=== PATIENT | male | born 1975 | race Two or more races ===

== ENCOUNTER 2020-09-15 04:39 | Emergency (ER) | payer BC ==
[~2020-09-15] VITALS: Ht 177.8 cm; Wt 77.3 kg
[2020-09-15 04:42] VITALS: BP 123/93; Ht 177.8 cm; Wt 77.3 kg
[2020-09-15 05:21] LABS: BASOPHILS 0.3 % (0-2); EOSINOPHILS 0.3 % (0-7); HEMATOCRIT 44.9 % (42.0-54.0); HEMOGLOBIN 15.1 g/dL (13.5-17.5); IMMATURE GRANULOCYTES 0.1 % (0-5); LYMPHOCYTE ABS# 2.17 10x3/uL (1.32-3.57); MCH 28.1 pg (26.0-34.0); MCHC 33.6 g/dL (31.0-37.0); MCV 83.6 fL (80.0-100.0); MEAN PLATELET VOLUME 10.9 fL (7.4-10.4); MONOCYTES 15.4 % (2-11); NEUTROPHILS 52.9 % (40-80); PLATELET COUNT 226 10x3/uL (130-400); RBC 5.37 10x6/uL (4.20-6.10); RDW 13.4 % (11.5-14.5)
[2020-09-15 05:31] LABS: CALC OSMOLALITY 271 mosm/kg (275-300); CALCIUM 9.3 mg/dL (8.5-10.1); CARBON DIOXIDE 28.6 mmol/L (21.0-32.0); CHLORIDE - SERUM 97 mmol/L (98-107); CREATININE - SERUM 1.3 mg/dL (0.6-1.3); GLUCOSE 111 mg/dL (74-106); POTASSIUM - SERUM 3.6 mmol/L (3.5-5.1); SODIUM 135 mmol/L (136-145); UREA NITROGEN 15 mg/dL (7-18); eGFR NON AFRICAN AMERICAN 64 mL/min (90-120)
[2020-09-15 05:45] LABS: ALBUMIN 4.2 g/dL (3.4-5.0); ALKALINE PHOSPHATASE 74 U/L (30-120); ALT (SGPT) 20 U/L (10-68); BILIRUBIN - TOTAL 0.45 mg/dL (0.2-1.3); C-REACTIVE PROTEIN 1.1 mg/dL (0.0-0.9)
[2020-09-15 05:46] LABS: PRO BNP 9 pg/mL (0-125); TROPONIN-I < 0.017 ng/mL (0.000-0.060)
[2020-09-15 06:40] LABS: UDS - AMPHET POSITIVE QUAL (NEGATIVE); UDS - BARB NEGATIVE QUAL (NEGATIVE); UDS - BENZO NEGATIVE QUAL (NEGATIVE); UDS - COCAINE NEGATIVE QUAL (NEGATIVE); UDS - OPIATE NEGATIVE QUAL (NEGATIVE); UDS - PCP NEGATIVE QUAL (NEGATIVE); UDS - THC NEGATIVE QUAL (NEGATIVE)
[2020-09-15 06:53] LABS: BILIRUBIN NEGATIVE (NEGATIVE); KETONE NEGATIVE (NEGATIVE); NITRITE NEGATIVE (NEGATIVE); UROBILINOGEN NORMAL mg/dL (< 2)
[2020-09-15 06:54] LABS: BACTERIA FEW HPF (NONE SEEN); SQUAMOUS EPITHELIAL 0-5 HPF (0-4); WHITE CELLS - URINE 2 HPF (0-1)
== END 2020-09-15 06:36 | disposition home or self-care (01) ==
LOC: D.ER 04:39
PROVIDERS: Family Medicine
DX: R06.00 Dyspnea, unspecified (principal)

== ENCOUNTER 2020-09-16 00:39 | Emergency (ER) | payer BC ==
[~2020-09-16] VITALS: Ht 177.8 cm; Wt 68.2 kg
[2020-09-16 00:44] VITALS: Ht 177.8 cm; Wt 68.2 kg
[2020-09-16 05:55] VITALS: BP 126/88
== END 2020-09-16 05:55 | disposition home or self-care (01) ==
LOC: D.ER 00:39
DX: F15.10 Other stimulant abuse, uncomplicated (principal); R53.1 Weakness